=== PATIENT | female | born 1980 | race African-American/Black ===

== ENCOUNTER 2020-11-27 16:55 | Emergency (ER) | payer MEDICARE ==
[2015-04-24 06:29] VITALS: Ht 160 cm; Wt 88.6 kg
[~2020-11-27] VITALS: Ht 160 cm; Wt 88.6 kg
[~2020-11-27 16:55] MED LIST: FLOVENT HFA 11012 GM INH; IBUPROFEN600 MG PO; LEVAQUIN750 MG PO; MUCINEX600 MG PO; NICODERM C1 PATCH .3 TD; PERCOCET 5-3251 TAB PO; PRENAVITE1 TAB PO; TUSSIONEX PENN473 ML PO
[2020-11-27 17:49] LABS: BASOPHILS 0.5 % (0-2); EOSINOPHILS 1.5 % (0-7); HEMATOCRIT 44.8 % (36.0-48.0); HEMOGLOBIN 15.2 g/dL (12-16); IMMATURE GRANULOCYTES 0.3 % (0-5); LYMPHOCYTES 30.5 % (15-50); MCHC 33.9 g/dL (31.0-37.0); MCV 91.4 fL (80.0-100.0); MEAN PLATELET VOLUME 9.7 fL (7.4-10.4); MONOCYTES 9.3 % (2-11); NEUTROPHIL ABS# 6.66 10x3/uL (1.56-6.13); NEUTROPHILS 57.9 % (40-80); PLATELET COUNT 370 10x3/uL (130-400); RDW 13.2 % (11.5-14.5); WBC 11.5 10x3/uL (4.8-10.8)
[2020-11-27 17:58] LABS: APTT 27.3 SECONDS (22.8-39.4); INR 1.16 (0.85-1.17); PROTIME 13.7 SECONDS (11.6-15.0)
[2020-11-27 18:10] LABS: CALC OSMOLALITY 278 mosm/kg (275-300); CALCIUM 8.9 mg/dL (8.5-10.1); CARBON DIOXIDE 25.2 mmol/L (21.0-32.0); CHLORIDE - SERUM 104 mmol/L (98-107); CREATININE - SERUM 0.9 mg/dL (0.6-1.3); GLUCOSE 128 mg/dL (74-106); SODIUM 140 mmol/L (136-145); UREA NITROGEN 6 mg/dL (7-18); eGFR NON AFRICAN AMERICAN 73 mL/min (90-120)
[2020-11-27 18:27] LABS: ALBUMIN 3.8 g/dL (3.4-5.0); ALKALINE PHOSPHATASE 45 U/L (30-120); ALT (SGPT) 19 U/L (10-68); BILIRUBIN - TOTAL 0.31 mg/dL (0.2-1.3); CKMB 1.9 U/L (0.0-3.6); CREATINE KINASE 257 UL (21-215); PROTEIN - SERUM 7.2 g/dL (6.4-8.2)
[2020-11-27 18:29] LABS: TROPONIN-I < 0.017 ng/mL (0.000-0.060)
[2020-11-27 18:30] VITALS: BP 123/77
== END 2020-11-27 19:00 | disposition home or self-care (01) ==
LOC: D.ER 16:55
PROVIDERS: Student in an Organized Health Care Education/Training Program
DX: R07.9 Chest pain, unspecified (principal)